=== PATIENT | female | born 2005 | race Caucasian/White ===

== ENCOUNTER 2025-03-21 10:16 | Emergency (ER) | payer MEDICAID ==
[2025-03-21 10:57] LABS: BASOPHILS ABSOLUTE AUTO 0.0 K/mm3 (0.0-0.3); BASOPHILS PERCENT AUTO 0.4 % (0.0-1.0); EOSINOPHILS ABSOLUTE AUTO 0.1 K/mm3 (0.0-0.7); EOSINOPHILS PERCENT AUTO 1.4 % (0.0-5.0); IMMATURE GRAN ABSOLUTE AUTO 0.03 K/mm3 (0.00-0.05); IMMATURE GRAN PERCENT AUTO 0.3 % (0.0-0.4); LYMPHOCYTES ABSOLUTE AUTO 3.6 K/mm3 (2.0-8.8); LYMPHOCYTES PERCENT AUTO 38.1 % (50.0-65.0); MEAN PLATELET VOLUME 11.0 fl (9.4-12.3); MONOCYTES ABSOLUTE AUTO 0.9 K/mm3 (0.1-1.4); MONOCYTES PERCENT AUTO 9.3 % (2.0-10.0); NEUTROPHILS ABSOLUTE AUTO 4.8 K/mm3 (1.5-8.5); NEUTROPHILS PERCENT AUTO 50.5 % (35.0-45.0); NRBC ABSOLUTE 0.00 (0.00-0.03); NRBC PERCENT 0.0 % (0.0-0.2); PLATELET COUNT,PLT 301 K/mm3 (150-400); RED BLOOD CELL COUNT 4.46 M/mm3 (4.10-5.30); WHITE BLOOD CELL COUNT,WBC 9.55 K/mm3 (4.5-13.5)
[2025-03-21 10:58] LABS: APPEARANCE,URINE SLT CLOUDY (Clear); GLUCOSE,URINE NEGATIVE (Negative); OCCULT BLOOD,URINE NEGATIVE (Negative)
[2025-03-21 11:08] LABS: BUPRENORPHINE SCREEN,URINE NEGATIVE (CUTOFF=10); METHADONE SCREEN, URINE NEGATIVE (CUTOFF=200); METHAMPHETAMINES SCREEN, URINE NEGATIVE (CUTOFF=500); OXYCODONE SCREEN,URINE NEGATIVE (CUT0FF=100); THC SCREEN,URINE 20 NG/ML NEGATIVE (CUTOFF=50)
[2025-03-21 11:15] LABS: AMPHETAMINES SCREEN, URINE NEGATIVE (CUTOFF=500)
[2025-03-21 11:24] LABS: A/G RATIO 1.3 (1-2); BILIRUBIN TOTAL 0.5 mg/dL (0.2-1.0); BLOOD UREA NITROGEN,BUN 6.0 mg/dL (7-18); CARBON DIOXIDE,CO2 29.0 mEq/L (21-32); CHLORIDE,CL 107.0 mEq/L (98-107); CREATININE 0.6 mg/dL (0.55-1.02); EST CRCL DRUG DOSING (CG) 111.9 mL/min; ESTIMATED GFR 133.0 mL/min (>60); GLUCOSE RANDOM 87.0 mg/dL (70-99); POTASSIUM,K 3.4 mEq/L (3.5-5.1); PROTEIN TOTAL,TP 7.7 g/dl (6.4-8.2); SODIUM,NA 142.0 mEq/L (136-145)
[2025-03-21 11:33] LABS: ETHANOL BLOOD MEDICAL 0.0 gm% (0.00)
[2025-03-21 11:44] LABS: ASPARTATE AMNIOTRANSFERASE,AST 10.0 U/L (15-37)
[2025-03-21 11:46] LABS: ALANINE AMINOTRANSFERASE,ALT 8.0 U/L (14-59)
== END 2025-03-21 11:55 | disposition home or self-care (01) ==
LOC: JD.ED 10:16
DX: F41.8 Other specified anxiety disorders (principal)
CPT/HCPCS: 36415; 80053; 80143; 80179; 80306; 80307; 81001; 84703; 85025; 93005; 99285